=== PATIENT | male | born 1950 | race Caucasian/White ===

== ENCOUNTER 2017-03-12 06:37 | Day surgery (SDC) | payer OTHER ==
[~2017-03-12] VITALS: Ht 177.8 cm; Wt 83.2 kg
[~2017-03-12 06:37] MED LIST: CEFU250 PO; CIPR500 PO; DILT120 PO; NASAL SPRAY; OMEP20ER PO; OXYACE5T PO; RXOXYACE PO; TAMS.4ER PO
[2017-03-12] MEDS ORDERED: ROSU5 (07:13)
[2017-03-12] MEDS ORDERED: ASPI81CH (07:13)
[2017-03-12] MEDS ORDERED: Flecainide Acet50 MG (07:13)
[2017-03-12] MEDS ORDERED: VERAPAMIL (07:13)
[2017-03-12] MEDS ORDERED: SAVAYSA15 MG (07:14)
[2017-03-12] MEDS ORDERED: FISH OIL + D31 EACH (07:14)
[2017-03-12] MEDS ORDERED: ASCO500 (07:14)
== END 2017-03-12 09:00 | disposition home or self-care (01) ==
LOC: ORSCSDS 06:37
PROVIDERS: Surgery
PROC: 0DJD8ZZ Inspection of Lower Intestinal Tract, Via Natural or Artificial Opening Endoscopic (ICD-10-PCS; principal; 2017-03-12 08:00)
DX: K62.5 Hemorrhage of anus and rectum (principal); I10 Essential (primary) hypertension; Z79.82 Long term (current) use of aspirin; Z79.899 Other long term (current) drug therapy; K21.9 Gastro-esophageal reflux disease without esophagitis; I48.0 Paroxysmal atrial fibrillation
CPT/HCPCS: J0330; J1980; J2405

== ENCOUNTER → 2017-05-17 | Outpatient (CLI) | payer OTHER ==
[~2017-05-17] MED LIST changes: +ASCO500; +ASPI81CH; +FISH OIL + D31 EACH; +Flecainide Acet50 MG; +ROSU5; +SAVAYSA15 MG; +VERAPAMIL
[2017-05-17 16:14] LABS: Source, Urine Clean Catch
[2017-05-17 19:09] LABS: Hematocrit 38.3 % (37.0-53.0); Hemoglobin 12.4 g/dL (13.5-17.5)
[2017-05-17 19:10] LABS: Appearance, Urine Clear (Clear); Bilirubin, Urine Neg (Neg); Blood, Urine 5+ (Neg); Color, Urine Yellow (P-Yellow); Glucose Qualitative, Urine Neg (Neg); Ketones, Urine Neg (Neg); Leukocyte Esterase, Urine Neg (Neg); Nitrite, Urine Neg (Neg); Protein, Urine 1+ (Neg); Urobilinogen, Urine NORM (Normal); pH, Urine 6.5 (5.0-8.0)
[2017-05-17 19:19] LABS: Albumin, Blood 3.9 g/dL (3.4-5.0); Anion Gap 7 mmol/L (6-16); Blood Urea Nitrogen 28 mg/dL (8-24); Bun/Creatinine Ratio 19.9 (12.0-20.0); CO2, Blood 27 mmol/L (21-32); Chloride, Blood 106 mmol/L (98-108); Creatinine, Blood 1.41 mg/dL (0.60-1.20); Glomerular Filtration Rate 54 (60-); Glucose, Blood 78 mg/dL (70-99); Phosphorus, Blood 2.4 mg/dL (2.5-4.9); Potassium, Blood 4.3 mmol/L (3.5-5.5); Sodium, Blood 140 mmol/L (136-145)
[2017-05-17 19:19] LABS: Red Blood Cells, Urine 50-100 /hpf (0-2); White Blood Cells, Urine 0-2 /hpf (0-5)
[2017-05-17 19:20] LABS: Mucus Light (0-Heavy)
[2017-05-17 19:21] LABS: Bacteria Not Seen /hpf; Squamous Epithelial Cells Not Seen /hpf (Few)
== END | disposition home or self-care (01) ==
LOC: LAB SHORT 16:06 → OLS 16:06
PROVIDERS: Internal Medicine
DX: N18.3 Chronic kidney disease, stage 3 (moderate) (principal); D63.1 Anemia in chronic kidney disease
CPT/HCPCS: 36415; 80069; 81001; 85014; 85018

== ENCOUNTER → 2018-05-27 | Outpatient (CLI) | payer MEDICARE, OTHER | END | disposition home or self-care (01) | LOC: PLD 07:42 → LAB SHORT 07:42 | DX: C44.519 Basal cell carcinoma of skin of other part of trunk (principal) | CPT/HCPCS: 88305 ==

== ENCOUNTER → 2020-07-07 | Outpatient (CLI) | payer MEDICARE, OTHER ==
[2020-07-07 15:44] LABS: Protein, Urine Quantitative 7.6 mg/dL (0.0-11.9)
== END | disposition home or self-care (01) ==
LOC: LAB SHORT 14:11 → LAB 14:11
PROVIDERS: Family Medicine
DX: N28.9 Disorder of kidney and ureter, unspecified (principal)
CPT/HCPCS: 81050; 84156

== ENCOUNTER → 2023-02-19 | Outpatient (CLI) | payer MEDICARE, OTHER | END | disposition home or self-care (01) | LOC: PLD 14:28 → LAB SHORT 14:28 | DX: D48.5 Neoplasm of uncertain behavior of skin (principal) | CPT/HCPCS: 88305 ==